=== PATIENT | male | born 1950 | race American Indian/Alaskan Native ===

== ENCOUNTER 2017-09-18 12:23 | Outpatient (CLI) | payer BC ==
--- NOTE | 2017-09-18 14:38 | XRay Report ---
XRAY LEFT HIP THREE VIEWS: 09/18/17 12:23:00 CLINICAL: Left hip pain. FINDINGS: Osteoarthritis with loss of the superior joint space with superior acetabular eburnation and geodes. Small superior and lateral osteophytes. Similar but less severe changes in the right hip. No fracture or dislocation. The pelvic bones are intact. The SI joints are fused superiorly. No erosions. Normal soft tissues. 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 Bilateral sacroiliitis.
== END 2017-09-18 12:24 | disposition home or self-care (01) ==
LOC: SPVIMAG 12:23
PROVIDERS: ATTEND Orthopaedic Surgery Sports Medicine
DX: M16.0 Bilateral primary osteoarthritis of hip (principal); M46.1 Sacroiliitis, not elsewhere classified